=== PATIENT | female | born 1985 | race Two or more races ===

== ENCOUNTER 2023-12-11 16:54 | Emergency (ER) | payer MEDICAID ==
[2023-12-11 18:27] LABS: CORONAVIRUS COVID-19 NAA NEGATIVE (NEGATIVE); INFLUENZA A NAA NEGATIVE (NEGATIVE); INFLUENZA B NAA POSITIVE (NEGATIVE); RESPIRATORY SYNCYTIAL VIR NAA NEGATIVE (NEGATIVE)
== END 2023-12-11 18:29 | disposition home or self-care (01) ==
LOC: MW.ED 16:54 → EDBD 16:54 → MW.ED 18:29
DX: R05.9 Cough, unspecified (principal); Z88.2 Allergy status to sulfonamides
CPT/HCPCS: 0241U; 87651; 99283; 99282

== ENCOUNTER 2024-04-26 12:30 | Emergency (ER) | payer MEDICAID ==
[2024-04-26] MEDS: Ketorolac 30 MG/ML SDV IM STA (13:07)
[2024-04-26] MEDS: Orphenadrine 60 MG/2 ML Inj IM STA (13:07)
== END 2024-04-26 14:00 | disposition home or self-care (01) ==
LOC: MW.ED 12:30
DX: M54.42 Lumbago with sciatica, left side (principal); Z75.8 Other problems related to medical facilities and other health care; Z88.2 Allergy status to sulfonamides
CPT/HCPCS: 96372; 99283; J1885; J2360